=== PATIENT | female | born 1970 | race Hispanic/Latino ===

== ENCOUNTER 2024-10-25 10:42 | Emergency (ER) | payer BC ==
[~2024-10-25] VITALS: Ht 160 cm; Wt 112.5 kg
[2024-10-25 10:50] VITALS: PULSE 80; RESP 20; TEMP 98; O2SAT 98
[2024-10-25] MEDS ORDERED: PREDNISONE20 MG PO (11:16)
== END 2024-10-25 11:35 | disposition home or self-care (01) ==
LOC: FSED 11:03
DX: R20.0 Anesthesia of skin (principal); M54.12 Radiculopathy, cervical region; M25.512 Pain in left shoulder; M79.632 Pain in left forearm; E03.9 Hypothyroidism, unspecified
CPT/HCPCS: 99282

== ENCOUNTER 2025-02-09 23:42 | Emergency (ER) | payer BC ==
[~2025-02-09] VITALS: Ht 160 cm; Wt 115.2 kg
[~2025-02-09 23:42] MED LIST: PREDNISONE20 MG PO
[2025-02-09 23:50] VITALS: PULSE 73; RESP 16; TEMP 98.3
[2025-02-10] MEDS: KETOROLAC TROMETHAMINE 30 MG/ML VIAL IM STA (00:40)
[2025-02-10] MEDS: DIPHENHYDRAMINE HCL INJ 50 MG/ML VIAL IM ONE (00:40)
[2025-02-10] MEDS: ONDANSETRON HCL 4 MG ORAL DISINTEGRATING TAB PO ONE (00:40)
[2025-02-10 01:14] VITALS: BP 121/85; PULSE 73; RESP 16; TEMP 98.3; O2SAT 97
== END 2025-02-10 01:05 | disposition home or self-care (01) ==
LOC: FSED 02-10 00:13
DX: K13.0 Diseases of lips (principal); L29.9 Pruritus, unspecified; R51.9 Headache, unspecified; R60.0 Localized edema; E03.9 Hypothyroidism, unspecified
CPT/HCPCS: 99283; J1200; J1885; Q0162

== ENCOUNTER 2025-07-25 21:52 | Emergency (ER) | payer BC ==
[~2025-07-25] VITALS: Ht 157.5 cm; Wt 116.6 kg
[2025-07-25 21:55] VITALS: PULSE 18; RESP 18; TEMP 98.8
[2025-07-25] MEDS ORDERED: TRIAMCINOLONE A15 G1 TOP (22:25)
[2025-07-25 22:40] VITALS: BP 138/79; PULSE 81; RESP 18; TEMP 98.8; O2SAT 98
== END 2025-07-25 22:35 | disposition home or self-care (01) ==
LOC: FSED 22:24
DX: R21 Rash and other nonspecific skin eruption (principal); E03.9 Hypothyroidism, unspecified; E66.9 Obesity, unspecified
CPT/HCPCS: 99283